=== PATIENT | male | born 1970 | race Two or more races ===

== ENCOUNTER 2024-09-09 08:25 | Emergency (ER) | payer BC ==
[~2024-09-09] VITALS: Ht 172.7 cm; Wt 81.0 kg
[2024-09-09] MEDS: HYDROcodone-ACET 10/325MG TAB PO ONE (09:00)
--- NOTE | 2024-09-09 09:03 | ED.PDOC ---
History of Present Illness HPI Comments 53-year-old male came to the ER stating that ceramic tile box fell on his left arm this morning causing pain. States that pain is 7/10. He has good sensation. Denies hitting his head. Denies loss of consciousness. Able to ambulate without difficulty. Denies any past medical surgical history. Chief Complaint: Upper Extremity Time Seen by MD: 08:30 Primary Care Provider: SIERRA Reviewed Notes: Nurses Notes, Medications, Allergies Allergies: Coded Allergies: NO KNOWN ALLERGIES (Unverified , 09/09/24) Information Source: Patient Mode of Arrival: EMS Severity: Mild Timing: Hours Duration: Since onset Past Medical History PAST MEDICAL HISTORY: Denies Surgical History: Denies all surgeries Social History Smoker: Non-Smoker Alcohol: Denies ETOH Use Drugs: Denies Drug Use Constitutional: denies: chills, diaphoresis, fatigue, fever, malaise, sweats, weakness, others EENTM: denies: blurred vision, double vision, ear bleeding, ear discharge, ear drainage, ear pain, ear ringing, eye pain, eye redness, hearing loss, mouth pain, mouth swelling, nasal discharge, nose bleeding, nose congestion, nose pain, photophobia, tearing, throat pain, throat swelling, voice changes, others Respiratory: denies: cough, hemoptysis, orthopnea, SOB at rest, shortness of breath, SOB with excertion, stridor, wheezing, others Cardiovascular: denies: chest pain, dizzy spells, diaphoresis, Dyspnea on exertion, edema, irregular heart beat, left arm pain, lightheadedness, palpitations, PND, syncope, others Gastrointestinal: denies: abdomen distended, abdominal pain, blood streaked bowels, constipated, diarrhea, dysphagia, difficulty swallowing, hematemesis, melena, nausea, poor appetite, poor fluid intake, rectal bleeding, rectal pain, vomiting, others Genitourinary: denies: burning, dysuria, flank pain, frequency, hematuria, incontinence, penile discharge, penile sore, pain, testicle pain, testicle swelling, urgency, others Neurological: denies: dizziness, fainting, headache, left sided numbness, left sided weakness, numbness, paresthesia, pre-existing deficit, right sided numbness, right sided weakness, seizure, speech problems, tingling, tremors, weakness, others Musculoskeletal: reports: muscle pain (Left arm); denies: back pain, gout, joint pain, joint swelling, muscle stiffness, neck pain, others Integumetry: denies: bruises, change in color, change in hair/nails, dryness, laceration, lesions, lumps, rash, wounds, others Allergic/Immunocompromised: denies: Difficulty Healing, Frequent Infections, Hives, Itching, others Hematologic/Lymphatic: denies: anemia, blood clots, easy bleeding, easy bruising, swollen glands, others Endocrine: denies: excessive hunger, excessive sweating, excessive thirst, excessive urination, flushing, intolerance to cold, intolerance to heat, unexplained weight gain, unexplained weight loss, others Psychiatric: denies: anxiety, bipolar disorder, depression, hopeless, panic disorder, schizophrenia, sleepless, suicidal, others Physical Exam General Appearance: Moderate Distress HEENT: Normal ENT Inspection, Pharynx Normal, TMs Normal Neck: Full Range of Motion, Non-Tender, Normal, Normal Inspection Respiratory: Chest Non-Tender, Lungs Clear, No Accessory Muscle Use, No Respiratory Distress, Normal Breath Sounds Cardiovascular: No Edema, No JVD, No Murmur, No Gallop, Normal Peripheral Pulses, Regular Rate/Rhythm Breast Exam: Deferred Gastrointestinal: No Organomegaly, Non Tender, No Pulsatile Mass, Normal Bowel Sounds, Soft Genitalia: Deferred Pelvic: Deferred Rectal: Deferred Extremities: Decreased range of motion (Left upper extremity) Musculoskeletal : Apperance: Normal Neurologic: Alert, police lieutenant patrol II-XII nml as Tested, No Motor Deficits, Normal Affect, Normal Mood, No Sensory Deficits Cerebellar Function: Normal Reflexes: Normal Skin: Dry, Normal Color, Warm Peripheral Pulses: 3+ Radial (R), 3+ Radial (L) Lymphatic: No Adenopathy Was a procedure done? Was a procedure done?: No Differential Dx Considerations may include: Musculoskeletal pain Muscle strain X-Ray, Labs, Meds, VS Vital Signs Date Time Temp Pulse Resp B/P (MAP) Pulse Ox O2 Delivery O2 Flow Rate FiO2 09/09/24 08:47 98.0 84 18 142/97 (112) 98 98.0 09/09/24 08:47 84 18 98 Room Air 09/09/24 08:35 97.6 78 20 158/100 (119) 99 Patient alert. Status post fall. Complaining of left arm. Vitals stable. Answering all questions. Ambulating. No sign of distress. Has good pulses. Good vascular treat. [place] in color. Good muscle strength. Was given prescription of Motrin. Explained to the patient. Was told to follow up with his primary care physician. Was told about come back if there is any problem. Time of 1ST Reevaluation: 08:59 Reevaluation 1ST: Unchanged Patient Education/Counseling: Diagnosis, Treatment, Prognosis, Need For Follow Up Family Education/Counseling: No Family Present Departure 1 Departure Time of Disposition: 09:02 Impression: Primary Impression: Musculoskeletal pain Disposition: 01 HOME / SELF CARE / HOMELESS Condition: Good Discharged With: Self Critical Care Note Critical Care Time?: No Stability Stability form required: No Heart Score Heart Score: Heart Score Response (Comments) Value History N/A 0 EKG N/A 0 Age N/A 0 Risk Factors N/A 0 Troponin N/A 0 Total 0 ZANDRA MCBRIDE MD Sep 09, 2024 09:03
[2024-09-09 09:20] VITALS: PULSE 84; RESP 18; O2SAT 98
--- NOTE | 2024-09-09 09:30 | DVH ---
EXAM: XY L HUMERUS XRAY, XY L FOREARM XRAY CLINICAL INDICATION: fall TECHNIQUE: XY L HUMERUS XRAY, XY L FOREARM XRAY, 3 views Comparison: None FINDINGS/IMPRESSION: There is no evidence of acute fracture or dislocation. The visualized joint space is well maintained. The alignment is anatomical. There is no radiopaque foreign body.
--- NOTE | 2024-09-09 09:30 | DVH ---
EXAM: XY L FOREARM XRAY CLINICAL INDICATION: fall TECHNIQUE: XY L FOREARM XRAY. 3 views Comparison: None FINDINGS/IMPRESSION: There is no evidence of acute fracture or dislocation. The visualized joint space is well maintained. The alignment is anatomical. There is no radiopaque foreign body.
--- NOTE | 2024-09-09 10:07 | DVH ---
XY L HAND 2V XRAY, INDICATION: fall TECHNICAL DATA: Frontal, and lateral views were obtained of the left hand. COMPARISON: None FINDINGS: No fracture is identified. Joint spaces are maintained. Alignment is anatomic. Soft tissues are withi n normal limits. IMPRESSION: No acute fracture or dislocation of the left hand.
[2024-09-09 10:55] VITALS: BP 118/80; PULSE 76; RESP 18; TEMP 98.6; O2SAT 98
== END 2024-09-09 10:57 | disposition home or self-care (01) ==
LOC: ER 08:25 → EDBD 08:25 → ER 10:57
DX: M79.602 Pain in left arm (principal); W20.8XXA Other cause of strike by thrown, projected or falling object, initial encounter; Y93.89 Activity, other specified; Y92.89 Other specified places as the place of occurrence of the external cause; Y99.8 Other external cause status
CPT/HCPCS: 73060; 73090; 73120